=== PATIENT | male | born 1940 | race Caucasian/White ===

== ENCOUNTER 2023-06-08 12:43 | Emergency (ER) | payer OTHER, SELFPAY ==
[2023-06-08 13:08] VITALS: BP 167/56
[2023-06-08 13:09] VITALS: BMI 32.6
[2023-06-08 13:31] LABS: % Basophils 0.3 % (0-2); % Eosinophils 0.8 % (0-6); % Immature Granulocytes 0.7 % (0-0.5); % Lymphocytes 9.4 % (20.5-51.1); % Monocytes 7.2 % (1.7-9.3); % Neutrophils 81.6 % (42.2-75.2); Absolute Eosinophils 0.1 10^3/uL (0-0.7); Absolute Immature Granulocytes 0.1 10^3/uL (0-0.05); Absolute Lymphocytes 0.9 10^3/uL (1.2-3.4); Absolute Monocytes 0.7 10^3/uL (0.1-0.6); Absolute Neutrophils 7.4 10^3/uL (1.4-6.5); Hematocrit 36.2 % (39.0-52.0); Hemoglobin 11.9 g/dL (13.0-18.0); Mean Corp Hgb Conc. 32.9 g/dL (33.0-37.0); Mean Corpuscular Hgb 33.4 pg (27.0-31.0); Mean Corpuscular Volume 101.7 fL (80.0-94.0); Mean Platelet Volume 8.7 fL (7.4-10.4); Nucleated Red Blood Cells % 0 % (-); Platelet Count 250 10^3/uL (130-400); Red Blood Cell Count 3.56 10^6/uL (4.70-6.10); Red Cell Dist. Width 15.2 % (11.5-14.5)
--- NOTE | 2023-06-08 13:51 | ED.GENMED ---
History of Present Illness
General
Chief Complaint: Breathing Problem
Source: patient and family (Daughter)
Time Seen by Provider: 06/08/23 13:38
Travel History
Have you had any contact with someone who has COVID-19?: No
Do you have any symptoms of coronavirus? Fever > 100 degrees, chills, cough, shortness of breath, sore throat, loss of taste or smell, muscle aches, or headache?: No
History of Present Illness
History of Present Illness:
82-year-old male presents to the emergency room for evaluation of shortness of breath. 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 Daughter states he had 4 weeks of aggressive radiation because the tumor was encroaching
on his esophagus and trachea. Daughter states that patient's neck swelling which was present prior to radiation has gone down actually. He had a follow-up CT scan performed recently at a outpatient imaging center associate with [facility] and a
pleural effusion was noted. Unclear what the status of the sarcoma was. Patient also complaining of thick secretions which are difficult to clear. When he has a coughing episode he becomes quite short of breath and appears to be gasping for air.
Phy Exam
Physical Exam
Physical Exam:
General: Awake, Alert, Oriented X3. Appears chronically ill
Vitals: unremarkable
Head: Atraumatic
Eyes: Pupils equal, EOMI
Throat: Airway intact, no exudates
Neck: Trachea midline
Lungs: Decreased breath sounds left base, crackles bilateral bases
Heart: Regular rate, no murmurs
Abd: Soft, Nontender, No pulsatile mass
Neuro: Nonfocal
Skin: Warm, dry, no rash
Extremities: pulses equal b/l, 2+ edema
Scores
Heart Failure Risk
Heart Failure Risk Score: Not Applicable
Course
Orders/Labs/Results
Orders:
Orders
06/08/23 12:55
Electrocardiogram (*1) Urgent
Reason for Study: Shortness of Breath
EKG- Treatment ONCE
06/08/23 13:25
Complete Blood Count/With Diff Urgent
Comprehensive Metabolic Panel Urgent
NT-proBNP Urgent
06/08/23 13:51
CR Chest - 2 Views Urgent
Comment:
Reason For Exam: shortness of breath, recent mediastinal rxt
Abnormal Lab Results
06/08/23
13:25
RBC 3.56 L 10^6/uL
(4.70-6.10)
Hgb 11.9 L g/dL
(13.0-18.0)
Hct 36.2 L %
(39.0-52.0)
MCV 101.7 H fL
(80.0-94.0)
MCH 33.4 H pg
(27.0-31.0)
MCHC 32.9 L g/dL
(33.0-37.0)
RDW 15.2 H %
(11.5-14.5)
Abs Immat Gran (auto) 0.1 H 10^3/uL
(0-0.05)
Absolute Neuts (auto) 7.4 H 10^3/uL
(1.4-6.5)
Absolute Lymphs (auto) 0.9 L 10^3/uL
(1.2-3.4)
Absolute Monos (auto) 0.7 H 10^3/uL
(0.1-0.6)
Immature Gran % 0.7 H %
(0-0.5)
Neutrophils % 81.6 H %
(42.2-75.2)
Lymphocytes % 9.4 L %
(20.5-51.1)
Carbon Dioxide 31 H mmol/L
(22-30)
BUN 25 H mg/dl
(9-20)
Glucose 175 H mg/dl
(70-99)
Total Protein 5.3 L g/dl
(6.3-8.2)
Albumin 3.3 L g/dl
(3.5-5.0)
06/08/23 13:25
06/08/23 13:25
Vital Signs
Initial and Last Documented VS:
Initial Vital Signs
Temp Pulse Resp Pulse Ox
98.1 F 72 16 97
06/08/23 12:50 06/08/23 12:50 06/08/23 12:50 06/08/23 12:50
Last Documented Vital Signs
Temp Pulse Resp BP Pulse Ox
98.1 F 63 17 141/62 94
06/08/23 12:50 06/08/23 16:15 06/08/23 16:15 06/08/23 16:00 06/08/23 16:15
MDM/Problems Addressed
Differential Diagnosis Includes:
Pneumonia, pleural effusion, tracheitis from radiation,
MDM/Problems Addressed:
Patient presents with difficulty clearing secretions essentially. He is coughing fits where he is having difficulty clearing secretions. This is made it difficult for him to use his CPAP at night. Chest x-ray here shows chronic changes but
nothing that appears acute. Labs are reassuring. Case discussed with the patient's oncologist at [facility]. No new interventions suggested. Will try Mucomyst to see if this will loosen some of his secretions and allow him more ease and clearing them.
Follow-up with [facility] oncology.
*Radiology
Radiology exam reviewed: radiology read reviewed
*Pulse Oximetry
Patient hypoxic: no
*EKG
Interpreted by ED Provider?: Yes
Interpretation: abnormal
Heart Rate: 76
Rate: normal
Rhythm: sinus and PAC's
Interval: first degree heart block
Ischemia: no ischemia
*Neonatal Social Worker Interpretation
Rate: normal
Rhythm: sinus
*Critical Care Note
Total Time (30-74mins, 75-104mins- exclusive of procedures): Not Applicable
Patient Management
Social determinants of health affecting care: Strong social support
ED Attending Note
-
Portions of this chart may have been created with voice recognition software.� Occasional wrong word or��sound alike� substitutions may have occurred due to the inherent limitations of voice recognition software.
Discharge Plan
Departure
Patient Disposition: Home (Routine Discharge)
Date of Disposition: 06/08/23
Time of Disposition: 16:37
Patient with high blood pressure during this ER visit?: Yes
Condition: Good
Discharge Problem:
Increased tracheal secretions
Prescriptions:
New
acetylcysteine 200 mg/mL (20 %) solution
3 ml inhalation Q8H Qty: 90 0RF
Referrals:
Sara Vitale, DO [Family Provider] -
Activity Restrictions/Additional Instructions:
I believe your thick secretions are related to your radiation treatment. I have prescribed Mucomyst for you to use through a nebulizer which will hopefully break up some of the secretions. Please follow with your oncologist as scheduled. return
to the emergency room if you develop worsening symptoms, shortness of breath etc.
Interventions
Interventions:
*Risk Screen - Suicide Last Done: 06/08/23 13:09
*General Assessment Last Done: 06/08/23 13:09
*Neglect/Abuse Screening Last Done: 06/08/23 13:09
*ED COVID-19 Vaccine History Last Done: 06/08/23 12:50
*Nursing Disposition Last Done: 06/08/23 16:57
ED- Cardiac Assessment Last Done: 06/08/23 13:11
ED- Pulmonary Assessment Last Done: 06/08/23 13:11
Discharge Date and Time
Discharge Date/Time: 06/08/23 16:58
[2023-06-08 13:53] LABS: NT-proBNP 554 pg/ml
[2023-06-08 14:00] VITALS: BP 129/63
[2023-06-08 14:09] LABS: ALT (SGPT) 19 U/L (0-50); AST (SGOT) 26 U/L (17-59); Albumin 3.3 g/dl (3.5-5.0); Alkaline Phosphatase 85 U/L (38-126); Blood Urea Nitrogen 25 mg/dl (9-20); Calcium 8.9 mg/dl (8.4-10.2); Carbon Dioxide 31 mmol/L (22-30); Chloride 102 mmol/L (98-107); Estimated Creatinine Clearance 46 ml/min; Glucose 175 mg/dl (70-99); Potassium 4.2 mmol/L (3.5-5.1); Sodium 136 mmol/L (135-145); Total Bilirubin 0.7 mg/dl (0.2-1.3); Total Protein 5.3 g/dl (6.3-8.2); eGFR 55.53
[2023-06-08 15:00] VITALS: BP 119/94
[2023-06-08 16:00] VITALS: BP 141/62
== END 2023-06-08 16:58 | disposition home or self-care (01) ==
LOC: EMR 12:43
PROVIDERS: EMERGENCY PHYSICIAN Emergency Medicine; FAMILY PHYSICIAN Family Medicine
DX: R06.02 Shortness of breath (principal); R05.9 Cough, unspecified; I44.0 Atrioventricular block, first degree; C38.3 Malignant neoplasm of mediastinum, part unspecified; Z92.3 Personal history of irradiation
CPT/HCPCS: 99285; 71046; 80053; 83880; 85025; 93005